=== PATIENT | male | born 1965 | race Two or more races ===

== ENCOUNTER 2024-09-23 21:55 | Inpatient (IN) | payer MEDICAID ==
[~2024-09-23] VITALS: Ht 160 cm; Wt 58.9 kg
[2024-09-23 22:26] LABS: ALANINE AMINOTRANSFERASE 24 U/L (12-78); ALBUMIN/GLOBULIN RATIO 1.2 (1.1-1.5); ALKALINE PHOSPHATASE 67 IU/L (46-116); ANION GAP 6 (8-16); ASPARTATE AMINO TRANSFERASE 16 U/L (10-37); BILIRUBIN,TOTAL 0.5 MG/DL (0.1-1.0); BLOOD UREA NITROGEN 8 MG/DL (7-18); BUN/CREATININE RATIO 12.7 (10.0-20.0); CALCIUM 8.3 MG/DL (8.5-10.1); CHLORIDE 106 MMOL/L (99-107); CREATININE 0.63 MG/DL (0.60-1.10); GLUCOSE 100 MG/DL (70-104); POTASSIUM 3.4 MMOL/L (3.5-5.1); SODIUM 141 MMOL/L (135-145); TOTAL CARBON DIOXIDE 29.1 MMOL/L (24-32); TOTAL PROTEIN 7.3 G/DL (6.4-8.2); eCRCL 99 ML/MIN; eGFR > 90 ML/MIN
[2024-09-23 22:31] LABS: BASOPHILS % (AUTO) 0.6 % (0-1); EOSINOPHILS # (AUTO) 0.1 X10'3 (0-0.9); EOSINOPHILS % (AUTO) 2.3 % (0-6); HEMATOCRIT 37.8 % (42.0-52.0); HEMOGLOBIN 12.7 g/dl (14.0-17.9); LYMPHOCYTES # (AUTO) 2.7 X10'3 (1.1-4.8); LYMPHOCYTES % (AUTO) 45.8 % (21-51); MEAN CORPUSCULAR HEMOGLOBIN 29.7 PG (27.0-31.0); MEAN CORPUSCULAR HGB CONC 33.5 g/dL (33.0-36.5); MEAN CORPUSCULAR VOLUME 88.6 FL (78-98); MEAN PLATELET VOLUME 7.4 FL (7.4-10.4); MONOCYTES # (AUTO) 0.5 X10'3 (0-0.9); NEUTROPHILS # (AUTO) 2.6 X10'3 (1.8-7.7); NEUTROPHILS % (AUTO) 43.3 % (42-75); PLATELET COUNT 268 X10'3 (140-440); RED BLOOD COUNT 4.27 X10'6 (4.70-6.10); RED CELL DISTRIBUTION WIDTH 12.9 % (11.5-14.5)
[2024-09-23 22:35] LABS: PRO BRAIN NATRIURETIC PEPTIDE 72 PG/ML (0-125)
[2024-09-23] MEDS ORDERED: NO HOME MEDS (22:36)
[2024-09-23] MEDS: ondansetron/PF 4mg/2ml inj IV ONE (22:39)
[2024-09-24] VITALS (13 sets, daily range): BP systolic 103–142; BP diastolic 58–86; PULSE 43–83; RESP 14–22; TEMP 97.1–98; O2SAT 96–99
[2024-09-24] MEDS ORDERED: potassium Cl 40MEQ/1/2NS 520ml 520 ML IV PRN (00:40)
[2024-09-24] MEDS ORDERED: magnesium Cl slow-release 64mg tablet PO PRN (00:40)
[2024-09-24] MEDS ORDERED: acetaminophen 325mg tablet PO PRN ×2 (00:40→02:10)
[2024-09-24] MEDS ORDERED: potassium Cl 20 mEq SR tablet PO PRN (00:40)
[2024-09-24] MEDS ORDERED: magnesium sulf-water 2g/50mL 50 ML IV PRN (00:40)
[2024-09-24] MEDS ORDERED: mag hydrox/Alum hydrox/simeth 30ml oral suspension PO PRN (00:40)
[2024-09-24] MEDS ORDERED: ondansetron/PF 4mg/2ml inj IV PRN (00:40)
[2024-09-24] MEDS ORDERED: magnesium sulf-water 4G/100mL 100 ML IV PRN (00:40)
[2024-09-24] MEDS ORDERED: magnesium hydroxide 30ml (MOM) UD suspension PO PRN (00:40)
[2024-09-24] MEDS ORDERED: morphine 2 MG/ML inj. syringe IV PRN (00:40)
[2024-09-24] MEDS ORDERED: nitroGLYCERIN 0.4mg SUBLingual tab SL PRN ×2 (01:25→17:10)
[2024-09-24] MEDS ORDERED: aminophylline 250mg/10ml inj. IV PRN (01:25)
[2024-09-24] MEDS ORDERED: metoprolol tartrate 1mg/ml inj IV PRN (01:25)
[2024-09-24] MEDS: enoxaparin 40mg/0.4ml syringe SUBCUT SCH (01:38)
[2024-09-24] MEDS: potassium Cl 20 mEq SR tablet PO PRN (01:38)
[2024-09-24] MEDS: aspirin 325mg tablet PO ONE (01:38)
[2024-09-24] MEDS: normal saline 1000ml 1,000 ML IV SCH (01:45)
[2024-09-24 01:56] LABS: APTT 28 SECONDS (22-32); INR 1.1 INR; PROTHROMBIN TIME 11.3 SECONDS (9.0-12.0)
[2024-09-24] MEDS: pantoprazole 40 MG vial IV SCH (02:54)
[2024-09-24 03:42] LABS: MAGNESIUM 1.7 MG/DL (1.5-2.4); POTASSIUM 3.4 MMOL/L (3.5-5.1)
[2024-09-24] MEDS: K and/or MAG REPLACEMENT MC SCH (06:43)
[2024-09-24] MEDS: docusate sod 100mg capsule PO SCH (06:43)
[2024-09-24] MEDS: regadenoson 0.4mg/5ml syringe IV PRN (09:09)
[2024-09-24] MEDS ORDERED: aminophylline 500mg/20ml vial IV PRN (14:44)
[2024-09-24] MEDS ORDERED: FLU VACC TS2024-25(6MOS UP)/PF 45 MCG/0.5 ML SYRINGE IMVAC ONE (15:40)
[2024-09-24] MEDS: nitroGLYCERIN 0.4mg SUBLingual tab SL PRN (17:28)
[2024-09-24 17:51] LABS: D-DIMER < 0.19 MG/L FEU (0-0.50)
[2024-09-24] MEDS: LORazepam 2 mg/ml vial IV PRN (21:46)
[2024-09-25 02:00] VITALS: BP 98/49; PULSE 50; RESP 14; TEMP 97.2; O2SAT 96
[2024-09-25 06:00] VITALS: BP 132/73; PULSE 50; RESP 16; TEMP 96.7; O2SAT 99
[2024-09-25 06:40] LABS: BASOPHILS % (AUTO) 0.6 % (0-1); EOSINOPHILS # (AUTO) 0.1 X10'3 (0-0.9); HEMATOCRIT 35.9 % (42.0-52.0); LYMPHOCYTES # (AUTO) 1.8 X10'3 (1.1-4.8); LYMPHOCYTES % (AUTO) 43.8 % (21-51); MEAN CORPUSCULAR HEMOGLOBIN 30.1 PG (27.0-31.0); MEAN CORPUSCULAR HGB CONC 33.5 g/dL (33.0-36.5); MEAN CORPUSCULAR VOLUME 89.6 FL (78-98); MEAN PLATELET VOLUME 7.6 FL (7.4-10.4); MONOCYTES # (AUTO) 0.3 X10'3 (0-0.9); MONOCYTES % (AUTO) 7.7 % (2-12); NEUTROPHILS # (AUTO) 1.8 X10'3 (1.8-7.7); NEUTROPHILS % (AUTO) 44.9 % (42-75); PLATELET COUNT 217 X10'3 (140-440); RED BLOOD COUNT 4.01 X10'6 (4.70-6.10); RED CELL DISTRIBUTION WIDTH 12.9 % (11.5-14.5); WHITE BLOOD COUNT 4.1 X10'3 (4.5-11.0)
[2024-09-25 06:57] LABS: ALANINE AMINOTRANSFERASE 23 U/L (12-78); ALBUMIN 3.4 G/DL (3.4-5.0); ALBUMIN/GLOBULIN RATIO 1.2 (1.1-1.5); ALKALINE PHOSPHATASE 55 IU/L (46-116); ANION GAP 4 (8-16); ASPARTATE AMINO TRANSFERASE 13 U/L (10-37); BILIRUBIN,TOTAL 0.5 MG/DL (0.1-1.0); BLOOD UREA NITROGEN 7 MG/DL (7-18); BUN/CREATININE RATIO 11.1 (10.0-20.0); CHLORIDE 109 MMOL/L (99-107); CHOL/HDL RATIO 4.3 (0.00-4.99); CHOLESTEROL 186 MG/DL (0-200); CREATININE 0.63 MG/DL (0.60-1.10); GLUCOSE 93 MG/DL (70-104); HDL CHOLESTEROL 43 MG/DL (35-60); LDL CHOLESTEROL 129 MG/DL (50-100); MAGNESIUM 1.8 MG/DL (1.5-2.4); POTASSIUM 4.1 MMOL/L (3.5-5.1); SODIUM 144 MMOL/L (135-145); TOTAL CARBON DIOXIDE 30.7 MMOL/L (24-32); TOTAL PROTEIN 6.3 G/DL (6.4-8.2); TRIGLYCERIDES 100 MG/DL (20-135); eCRCL 103 ML/MIN; eGFR > 90 ML/MIN
[2024-09-25 08:00] VITALS: RESP 16; O2SAT 99
[2024-09-25] MEDS ORDERED: ASPI-1265 PO (08:59)
[2024-09-25] MEDS ORDERED: ATOR20TA66 PO (08:59)
[2024-09-25] MEDS ORDERED: NITR0.4T48 SL (08:59)
[2024-09-25] MEDS ORDERED: CELE-193 PO (09:00)
[2024-09-25 11:00] VITALS: BP 106/65; PULSE 54; RESP 17; TEMP 98.2; O2SAT 98
[2024-09-25] MEDS: FLU VACC TS2024-25(6MOS UP)/PF 45 MCG/0.5 ML SYRINGE IMVAC ONE (11:17)
== END 2024-09-25 11:25 | disposition home or self-care (01) | DRG 198 ==
LOC: ER 21:57 → ED HOLD 09-24 01:12 → EDBEDREQ 09-24 14:13 → PCU 3S 09-24 14:42
PROVIDERS: ADMIT Internal Medicine Pulmonary Disease; ATTEND Internal Medicine
PROC: 4A02XM4 Measurement of Cardiac Total Activity, External Approach (ICD-10-PCS; principal; 2024-09-24)
PROC: 3E033HZ Introduction of Radioactive Substance into Peripheral Vein, Percutaneous Approach (ICD-10-PCS; 2024-09-24)
DX: I20.89 Other forms of angina pectoris (principal); K21.9 Gastro-esophageal reflux disease without esophagitis; Z88.8 Allergy status to other drugs, medicaments and biological substances; Z87.891 Personal history of nicotine dependence; Z88.5 Allergy status to narcotic agent; Z90.49 Acquired absence of other specified parts of digestive tract
CPT/HCPCS: 36415; 71045; 78452; 80053; 80061; 83036; 83735; 83880; 84132; 84484; 85025; 85379; 85610; 85730; 87081; 90686; 93005; 93017; 93306; 96374; 99285; A9500; G0378; J1650; J2060; J2405; J2470; J2785; J7030

== ENCOUNTER 2025-01-07 11:48 | Emergency (ER) | payer MEDICAID ==
[~2025-01-07] VITALS: Ht 160 cm; Wt 60.8 kg
[~2025-01-07 11:48] MED LIST: ATOR20TA66 PO; CELE-193 PO; NITR0.4T48 SL; NO HOME MEDS
--- NOTE | 2025-01-07 12:25 | RADIOLOGY REPORT ---
Indication: Shoulder Pain Technique: 3 views right shoulder Comparison: None FINDINGS/IMPRESSION: No radiographic evidence for acute fracture or dislocation of the right shoulder. No significant sof t tissue edema. No radiopaque foreign body. Calcific tendinosis. [id number] right AC joint art hrosis. Possible fracture posterior right 9th rib. Correlate with point tenderness.
[2025-01-07] MEDS ORDERED: ERYT1OIN6 RIGHTEYE (12:53)
--- NOTE | 2025-01-07 12:53 | Physician Documentation ---
History of Present Illness ~ Chief Complaint: Mechanical Fall Stated Complaint: EYE PAIN Time Seen by MD: 12:34 OK to notify your PCP?: Yes Primary Medical Doctor: NO PCP Source: patient Mode of Arrival: POV Exam Limitations: no limitations HPI 59-year-old male with chief complaint pain in his right shoulder after he had a ground level fall yesterday at home in his kitchen. He states when he woke up this morning his right eye was red and he is concerned that he scratched it in his sleep. He is also concerned that his fall may have caused something with his eye. He also states he was admitted here recently for angina and he was not sure if the I could be related to his blood pressure angina. He states his eye feels gritty but denies any vision changes. He states I did not even really notice it until I looked in the mirror when I woke up this morning. Patient did not hit his head yesterday he denies any neck or back pain. He denies any numbness or tingling in his extremities. Patient denies chest pain and shortness of breath. Tetanus within 5 Years?: No Medication Reconciliation Allergies: Coded Allergies: codeine (Verified Allergy, Mild, 09/24/24) droperidol (Verified Allergy, Mild, 09/24/24) morphine (Verified Allergy, Mild, 09/24/24) prochlorperazine (Verified Allergy, Mild, 09/24/24) Scheduled Atorvastatin Calcium (Atorvastatin Calcium), 40 MG PO DAILY Celecoxib (Celebrex), 1 CAP PO Q12H Erythromycin Base Opth. Ointment* (Erythromycin Opth. Ointment*), 1 APPLIC RIGHTEYE Q6HWA Nitroglycerin (Nitroglycerin), 0.4 MG SL PRN Miscellaneous Medications Home Med List (No Home Medications), (Reported) Past Medical History Patient History: LOUISE MOTHER FH: coronary artery bypass surgery FH: dementia FH: dementia FH: diabetes mellitus Review of Systems All Other Systems at this time: Reviewed and Negative Physical Exam Vital Signs: Temperature: 98.1, Source: Oral, Heart Rate: 64, Respiratory Rate: 16, BP: 121/71, Pulse Oximetry: 98, Weight: 60.800 Oxygen Flow Rate: 0 Physical Exam General Appearance: Alert, WD/WN. NAD. HEENT: NCAT, PERRL, EOMI. Focal point of injection on right medial to lower bulbar conjunctiva. No photophobia. No increased tearing or crusting at lasts. Neck: Supple, trachea midline. Cardiovascular: RRR. No m/r/g. Lungs: CTAB. Breathing unlabored Extremities: Normal inspection. No edema. AROM of shoulders full. AROM of cspine and lspine. CHEST: No ttp over chest wall or rib cage. Skin: Warm/dry, normal color Neurological: Alert and oriented x4, normal gait. Psychiatric: Affect congruent with mood. Progress Results/Orders Results/Orders Vital Signs 01/07/25 01/07/25 11:54 12:55 Temp 98.1 98.1 Pulse 64 64 Resp 16 16 B/P (MAP) 121/71 124/71 Pulse Ox 98 99 O2 Flow Rate 0 Medical Decision Making Differential Dx:Considerations: Include: Closed head injury, Cardiac injury, Fracture(s), Intraabdominal injury, Pneumothorax, Cerebral contusion, Pulmonary contusion, Spine injury, Tracheal injury, Urological injury, Vascular injury, Abrasion(s), Contusion(s), Foreign body(s), Hematoma(s), Laceration(s), Encephalopathy Departure Time of Disposition: 14:04 Disposition: 01 HOME / SELF CARE / HOMELESS Impression: Primary Impression: Fall Qualified Codes: W19.XXXA - Unspecified fall, initial encounter Additional Impressions: Shoulder pain, right Qualified Codes: M25.511 - Pain in right shoulder Conjunctival abrasion Qualified Codes: S05.01XA - Injury of conjunctiva and corneal abrasion without foreign body, right eye, initial encounter Condition: Stable Discharge Instructions: Fall Prevention in the Home, Adult, [id number] Additional Instructions: Indication: Shoulder Pain Technique: 3 views right shoulder Comparison: None FINDINGS/IMPRESSION: No radiographic evidence for acute fracture or dislocation of the right shoulder. No significant soft tissue edema. No radiopaque foreign body. Calcific tendinosis. [id number]-dh-[id number] right AC joint arthrosis. Possible fracture posterior right 9th rib. Correlate with point tenderness. Referrals: NO PRIMARY CARE PROVIDER (PCP) Prescriptions Erythromycin Base Opth. Ointment* (Erythromycin Opth. Ointment*) 1 Gm Tube 1 APPLIC RIGHTEYE Q6HWA for 5 Days, #1 EACH Prov: RONNY MOLINA 01/07/25 Education Educated: Patient Educated regarding: diagnosis, treatment, need for follow up Signature Scribe Signature: x Attestation: RONNY Desouza Jan 07, 2025 12:53
[2025-01-07 12:55] VITALS: BP 124/71; PULSE 64; RESP 16; TEMP 98.1; O2SAT 99
== END 2025-01-07 12:55 | disposition home or self-care (01) ==
LOC: ER 11:49
DX: S05.01XA Injury of conjunctiva and corneal abrasion without foreign body, right eye, initial encounter (principal); M25.511 Pain in right shoulder; M19.011 Primary osteoarthritis, right shoulder; Z88.5 Allergy status to narcotic agent; Z88.8 Allergy status to other drugs, medicaments and biological substances; Z79.899 Other long term (current) drug therapy; W18.30XA Fall on same level, unspecified, initial encounter; Y93.89 Activity, other specified; Y92.89 Other specified places as the place of occurrence of the external cause; Y99.8 Other external cause status
CPT/HCPCS: 73030; 99284

== ENCOUNTER 2025-04-28 10:09 | Outpatient (CLI) | payer MEDICAID ==
[~2025-04-28 10:09] MED LIST changes: +ERYT1OIN6 RIGHTEYE
--- NOTE | 2025-04-28 11:32 | RADIOLOGY REPORT ---
CLINICAL INDICATION: RIGHT ELBOW PAIN TECHNIQUE: 3 radiographic views of the right elbow were obtained. Comparison: None FINDINGS/IMPRESSION: There is no evidence of acute fracture or dislocation. The visualized joint space is well maintained. The alignment is anatomical. There is no radiopaque foreign body.
== END 2025-04-28 23:59 | disposition home or self-care (01) ==
LOC: RAD 10:09
PROVIDERS: ATTEND Family Medicine
DX: M25.521 Pain in right elbow (principal)
CPT/HCPCS: 73080